=== PATIENT | female | born 1960 | race Two or more races ===

== ENCOUNTER → 2023-09-06 | Outpatient (CLI) | payer BC ==
[2023-09-06 10:50] LABS: BASOPHILS % (AUTO) 0.4 % (0-1); EOSINOPHILS # (AUTO) 0.1 X10'3 (0-0.9); EOSINOPHILS % (AUTO) 1.5 % (0-6); HEMATOCRIT 41.3 % (35.0-45.0); HEMOGLOBIN 13.6 g/dl (12.0-16.0); LYMPHOCYTES # (AUTO) 1.9 X10'3 (1.1-4.8); LYMPHOCYTES % (AUTO) 37.8 % (21-51); MEAN CORPUSCULAR HEMOGLOBIN 27.7 PG (27.0-31.0); MEAN CORPUSCULAR HGB CONC 32.8 g/dL (33.0-36.5); MEAN CORPUSCULAR VOLUME 84.5 FL (78-98); MEAN PLATELET VOLUME 7.9 FL (7.4-10.4); MONOCYTES # (AUTO) 0.4 X10'3 (0-0.9); MONOCYTES % (AUTO) 7.6 % (2-12); NEUTROPHILS # (AUTO) 2.7 X10'3 (1.8-7.7); NEUTROPHILS % (AUTO) 52.7 % (42-75); PLATELET COUNT 230 X10'3 (140-440); RED BLOOD COUNT 4.89 X10'6 (4.20-5.60); WHITE BLOOD COUNT 5.1 X10'3 (4.5-11.0)
[2023-09-06 11:01] LABS: ALANINE AMINOTRANSFERASE 35 U/L (12-78); ALBUMIN 3.5 G/DL (3.4-5.0); ALBUMIN/GLOBULIN RATIO 0.9 (1.1-1.5); ALKALINE PHOSPHATASE 95 IU/L (46-116); ANION GAP 9 (8-16); ASPARTATE AMINO TRANSFERASE 18 U/L (10-37); BILIRUBIN,TOTAL 0.8 MG/DL (0.1-1.0); BLOOD UREA NITROGEN 15 MG/DL (7-18); BUN/CREATININE RATIO 24.6 (10.0-20.0); CHLORIDE 105 MMOL/L (99-107); CREATININE 0.61 MG/DL (0.40-0.90); GLUCOSE 97 MG/DL (70-104); POTASSIUM 3.8 MMOL/L (3.5-5.1); SODIUM 141 MMOL/L (135-145); TOTAL CARBON DIOXIDE 27.1 MMOL/L (24-32); TOTAL PROTEIN 7.6 G/DL (6.4-8.2); eGFR > 90 ML/MIN
[2023-09-06 11:03] LABS: CHOL/HDL RATIO 8.1 (0.00-4.99); CHOLESTEROL 282 MG/DL (0-200); HDL CHOLESTEROL 35 MG/DL (35-60); LDL CHOLESTEROL 157 MG/DL (50-100); TRIGLYCERIDES 413 MG/DL (20-135)
== END | disposition home or self-care (01) ==
LOC: LAB 10:17
PROVIDERS: ATTEND Student in an Organized Health Care Education/Training Program
DX: Z00.00 Encounter for general adult medical examination without abnormal findings (principal); Z83.3 Family history of diabetes mellitus
CPT/HCPCS: 36415; 80053; 80061; 85025

== ENCOUNTER 2025-01-27 08:40 | Outpatient (CLI) | payer BC ==
[2025-01-27 09:18] LABS: MEAN PLATELET VOLUME 7.9 FL (7.4-10.4); RED CELL DISTRIBUTION WIDTH 14.4 % (11.5-14.5)
[2025-01-27 09:38] LABS: CREATININE 0.46 MG/DL (0.40-0.90); TOTAL CARBON DIOXIDE 28.0 MMOL/L (24-32)
[2025-01-27 09:39] LABS: CHOL/HDL RATIO 6.3 (0.00-4.99); LDL CHOLESTEROL 144 MG/DL (50-100); eGFR > 90 ML/MIN
== END 2025-01-27 23:59 | disposition home or self-care (01) ==
LOC: RAD 08:40
PROVIDERS: ATTEND Nurse Practitioner Family
DX: R73.03 Prediabetes (principal); R53.83 Other fatigue; E78.00 Pure hypercholesterolemia, unspecified
CPT/HCPCS: 36415; 80053; 80061; 83036; 84443; 85025

== ENCOUNTER 2025-03-21 17:31 | Emergency (ER) | payer BC ==
[~2025-03-21] VITALS: Ht 162.6 cm; Wt 76.4 kg
[2025-03-21 17:33] VITALS: BP 145/63; PULSE 95; RESP 16; O2SAT 97
[2025-03-21] MEDS ORDERED: AMOX-117 PO (17:46)
--- NOTE | 2025-03-21 17:47 | Physician Documentation ---
History of Present Illness ~ Chief Complaint: Cold, cough & congestion Stated Complaint: COLD SYMPTOMS/ SORE THROAT Time Seen by MD: 17:37 Source: patient Mode of Arrival: POV Exam Limitations: no limitations HPI 64-year-old female with cold cough congestion sinus congestion since Monday. No fevers chest pain or shortness of breath. Most of the congestion to the maxillary sinuses. Lots of nasal discharge. Medication Reconciliation Allergies: Coded Allergies: No Known Allergies (Unverified , 03/21/25) Past Medical History Past Medical History: No Pertinent History Past Surgical History: noncontributory Lives with: Family Lives In: Home Occupation: employed Review of Systems All Other Systems at this time: Reviewed and Negative ENT: Reports: see HPI Physical Exam Vital Signs: RN Vital Signs have been reviewed: Yes, Temperature: 99.4, Source: Oral, Heart Rate: 95, Respiratory Rate: 16, BP: 145/63, Pulse Oximetry: 97, Weight: 76.360 Oxygen Flow Rate: 0 General Appearance: alert, WD/WN, no apparent distress Eyes: normal inspection, EOMI Ears: auricle normal, canal normal, TMs normal Nose: discharge, sinus tenderness Oropharynx: normal inspection Neck: non-tender, full range of motion Respiratory: no respiratory distress Chest: no accessory muscle use Progress Results/Orders Results/Orders Vital Signs 03/21/25 17:33 Temp 99.4 Pulse 95 Resp 16 B/P (MAP) 145/63 Pulse Ox 97 O2 Flow Rate 0 Medical Decision Making Additional information obtaine: N/A Findings Maxillary sinus tenderness to percussion swollen nasal turbinates copious nasal discharge viral versus bacterial etiology we will prescribe antibiotics and follow up with primary care Differential Dx:Considerations: Include: Allergic rhinitis, Influenza, Sinusitis, URI Departure Time of Disposition: 17:46 Disposition: 01 HOME / SELF CARE / HOMELESS Impression: Primary Impression: Sinusitis Condition: Stable Discharge Instructions: Sinus Infection, Adult Additional Instructions: Take antibiotics as prescribed and follow up as needed Referrals: NO PRIMARY CARE PROVIDER (PCP) Prescriptions Amox Tr/Potassium Clavulanate (Augmentin 875-125 Tablet) 1 Each Tablet 1 TAB PO Q12H for 7 Days, #14 TAB Prov: TERESA CHAMPAGNE [employer]CH[employer]ICIAN 03/21/25 Education Educated: Patient Educated regarding: diagnosis, treatment, need for follow up Signature Scribe Signature: No scribe Attestation: The note accurately reflects work and decisions made by me.Teresa KO 03/21/25 17:46 TERESA CHAMPAGNE NP Mar 21, 2025 17:47
[2025-03-21 18:04] VITALS: TEMP 99.4
== END 2025-03-21 18:04 | disposition home or self-care (01) ==
LOC: ER 17:31
DX: J32.9 Chronic sinusitis, unspecified (principal)
CPT/HCPCS: 99283